=== PATIENT | female | born 1985 | race Caucasian/White ===

== ENCOUNTER 2022-11-07 05:30 | Day surgery (SDC) | payer BC ==
[~2022-11-07] VITALS: Ht 149.9 cm; Wt 49.9 kg
[2022-11-07 06:46] LABS: HCG,QUAL RESULT NEGATIVE (NEGATIVE)
[2022-11-07] MEDS ORDERED: CEFAZOLIN SOD 2 GM in D5W 50 ML IV ONE (07:00)
[2022-11-07] MEDS ORDERED: BUPIVACAINE LIPOSOME/PF 266 MG/20 ML VIAL INFIL ONE (08:24)
[2022-11-07] MEDS ORDERED: LR 1,000 ML IV SCH (09:00)
[2022-11-07] MEDS ORDERED: MEPERIDINE HCL/PF 25 MG/ML DISP.SYRIN IVP PRN (09:00)
[2022-11-07] MEDS ORDERED: HYDROmorphone 1 MG/ML INJ. CARTRIDGE IVP PRN (09:00)
[2022-11-07] MEDS ORDERED: KETOROLAC TROMETHAMINE 30 MG VIAL IVP PRN (09:00)
[2022-11-07] MEDS ORDERED: METOCLOPRAMIDE HCL 10 MG/2 ML VIAL IVP PRN (09:00)
[2022-11-07] MEDS ORDERED: ONDANSETRON HCL 4 MG/2 ML VIAL IVP PRN (09:00)
[2022-11-07] MEDS ORDERED: ROCURONIUM BROMIDE 10 MG/ML (ZEMURON) ONE (11:10)
[2022-11-07] MEDS ORDERED: ONDANSETRON HCL 4 MG/2 ML VIAL ONE ×2 (11:10→12:33)
[2022-11-07] MEDS ORDERED: SEVOFLURANE 15 MIN GAS INH ONE (11:10)
[2022-11-07] MEDS ORDERED: PROPOFOL 200MG/ 20ML VIAL (DIPRIVAN) IV ONE (11:10)
[2022-11-07] MEDS ORDERED: WATER FOR IRRIGATION,STERILE 1,000 ML IRRIG.SOLN IR ONE (11:10)
[2022-11-07] MEDS ORDERED: SUCCINYLCHOLINE CHLORIDE 20 MG/ML(QUELICIN) ONE (11:10)
[2022-11-07] MEDS ORDERED: LR 1,000 ML IV.SOLN IV ONE (11:10)
[2022-11-07] MEDS ORDERED: SUGAMMADEX SODIUM 200 MG/2 ML VIAL IV ONE (11:10)
[2022-11-07] MEDS ORDERED: fentaNYL CITRATE/PF 100 MCG/2 ML AMP ONE (11:10)
[2022-11-07] MEDS ORDERED: BUPIVACAINE /PF 0.25% 30 ML VIAL INJ ONE (11:10)
[2022-11-07] MEDS ORDERED: HYDROmorphone 1 MG/ML INJ. CARTRIDGE ONE (11:34)
[2022-11-07 12:09] VITALS: BP_SYST 108
[2022-11-07] MEDS ORDERED: ONDANSETRON HCL 4 MG/2 ML VIAL IVP ONE (12:30)
[2022-11-07] MEDS ORDERED: OXYCODONE/ACETAMINOPHEN *10*mg/325 mg TABLET PO ONE (12:30)
[2022-11-07] MEDS ORDERED: OXYCODONE/ACETAMINOPHEN *10*mg/325 mg TABLET ONE (12:37)
== END 2022-11-07 14:00 | disposition home or self-care (01) ==
LOC: SDS 05:30 → SMU 05:30 → SDS 14:00
PROVIDERS: ATTEND Surgery
DX: K43.2 Incisional hernia without obstruction or gangrene (principal); E03.9 Hypothyroidism, unspecified; Z20.822 Contact with and (suspected) exposure to COVID-19
CPT/HCPCS: 87081; 49615; 49623; 84703; 36415; 88302; 87426; J3490 ×2; C9290; J0690; J2405; J2704; J0330; J3010; J1170; J7060; J7120; C1781